=== PATIENT | female | born 1980 | race African-American/Black ===

== ENCOUNTER 2019-06-13 21:52 | Emergency (ER) | payer MEDICAID ==
[~2019-06-13] VITALS: Ht 162.6 cm; Wt 54.4 kg
[2019-06-13 22:04] VITALS: BP_SYST 117
[2019-06-14] MEDS ORDERED: LIDOCAINE 1%, 20 ML MDV 20 ML ONE (01:06)
[2019-06-14] MEDS: LIDOCAINE 1% 10 MG/ML, 20 ML MDV INJ ONE (01:23)
[2019-06-14 01:40] VITALS: BP_SYST 128
== END 2019-06-14 01:40 | disposition home or self-care (01) ==
LOC: SED 21:52
DX: N75.1 Abscess of Bartholin's gland (principal); Z88.6 Allergy status to analgesic agent
CPT/HCPCS: 56420; 81025; 99284; J2001; 99283